=== PATIENT | female | born 1950 | race Two or more races ===

== ENCOUNTER 2023-11-04 16:18 | Emergency (ER) | payer MEDICARE, SELFPAY ==
--- NOTE | ~2023-11-04 | CT_ITS ---
EXAMINATION: CT ANGIOGRAM OF THE CHEST WITH AND WITHOUT CONTRAST (CT PULMONARY ANGIOGRAM FOR PE) CLINICAL INFORMATION: Pleuritic chest pain. Dizziness. Near-syncope. COMPARISON: Chest radiograph from 11/04/2023. TECHNIQUE: Prior to contrast administration, noncontrast localization images were obtained. Subsequently, multidetector volumetric imaging was performed from the thoracic inlet to below the diaphragms following the administration of 65 mL Omnipaque 350 intravenous contrast. No contrast reaction reported. Sagittal, coronal, and MIP oblique sagittal reformatted images were obtained on the CT workstation, uploaded to PACS, and reviewed. This CT examination was performed using dose optimization techniques as appropriate, variously including the following: *Automated exposure control. *Adjustment of mA and/or kV according to patient size (this includes techniques or standardized protocols for targeted exams where dose is matched to indication/reason for exam; i.e. extremities or head). *Use of iterative reconstruction technique. DLP: 413 mGy-cm FINDINGS: QUALITY OF STUDY/CONTRAST BOLUS: Satisfactory bolus. Respiratory motion limits evaluation of the lung bases. PULMONARY ARTERIES: No central pulmonary emboli. The segmental/subsegmental pulmonary arteries in the lung bases are not well evaluated on this exam. THORACIC AORTA: The thoracic aorta is of normal contour and caliber with mild calcific atherosclerotic disease. No evidence of thoracic aortic aneurysm or dissection. LUNG: Mild mosaic attenuation pattern of the lungs. Otherwise, no focal consolidation, nodules, or masses. Small bilateral pleural effusions. No pneumothorax. MEDIASTINUM: Normal heart size. No pericardial effusion. No hilar or mediastinal lymphadenopathy. No evidence of septal bowing or right heart strain. Coronary artery calcifications: Present - mild. CHEST WALL/AXILLA: No axillary or internal mammary lymphadenopathy. OSSEOUS STRUCTURES: Compression deformity of the T12 vertebral body with 50% loss of body height. No additional acute or suspicious osseous abnormality. UPPER ABDOMEN: Prior cholecystectomy. No demonstrated significant abnormalities of the visualized upper abdomen. No reflux of contrast into the hepatic veins to suggest elevated right heart pressures. CT/CT angio chest PE protocol IMPRESSION: 1. No central pulmonary emboli. The segmental/subsegmental pulmonary arteries in the lung bases are not well evaluated on this exam secondary to respiratory motion. 2. Small bilateral pleural effusions. 3. Compression deformity of the T12 vertebral body with 50% loss of body height. VTE: negative. Electronically signed by: yTler Pena DO 11/04/2023 11:12 PM EDT RP
--- NOTE | ~2023-11-04 | XR_ITS ---
EXAMINATION: XR LUMBOSACRAL SPINE CLINICAL INFORMATION: Fall COMPARISON: None available. TECHNIQUE: Three views of the lumbosacral spine. FINDINGS/ XR/XR lumbar spine 2-3V IMPRESSION: 5 nonrib-bearing lumbar vertebral bodies. Grade 1 anterolisthesis of L5 on S1, likely secondary to pars interarticularis defects. Central wedging of the T12 vertebral body. Moderate L4-5 and L5 S1 neural foraminal stenosis. Soft tissue structures within normal limits. Electronically signed by: Jasson Gordon DO 11/04/2023 10:51 PM EDT
--- NOTE | ~2023-11-04 | CT_ITS ---
EXAMINATION: CT HEAD WITHOUT CONTRAST CLINICAL INFORMATION: Dizziness, fall, unsteady COMPARISON: None available. TECHNIQUE: Contiguous axial imaging was performed from the skull base to vertex without intravenous administration of contrast. This CT examination was performed using dose optimization techniques as appropriate, variously including the following: *Automated exposure control *Adjustment of mA and/or kV according to patient size (this includes techniques or standardized protocols for targeted exams where dose is matched to indication/reason for exam; i.e. extremities or head) *Use of iterative reconstruction technique DLP: 563 mGy-cm FINDINGS: There is no evidence of acute intracranial hemorrhage or edematous territorial infarction. No abnormal mass effect or midline shift is seen. [place] to white matter differentiation is well preserved. No abnormal extra-axial fluid collections are identified. Patchy periventricular and deep white matter hypodensity suggestive of chronic microangiopathy. No acute calvarial fracture.. Paranasal sinuses and mastoid air cells are well-aerated. CT/CT head/brain wo IV con IMPRESSION: No CT evidence of acute intracranial hemorrhage or edematous territorial infarction. Electronically signed by: Juan Tripathi MD 11/04/2023 05:53 PM EDT
--- NOTE | ~2023-11-04 | CT_ITS ---
CT CERVICAL SPINE WITHOUT CONTRAST HISTORY: neck pain TECHNIQUE: CT images of the cervical spine were acquired without intravenous contrast. This CT examination was performed using dose optimization techniques as appropriate, variously including the following: *Automated exposure control *Adjustment of mA and/or kV according to patient size (this includes techniques or standardized protocols for targeted exams where dose is matched to indication/reason for exam; i.e. extremities or head) *Use of iterative reconstruction technique DLP: 415 mGy-cm COMPARISON: None available. FINDINGS: No prevertebral soft tissue swelling. The craniocervical junction is intact with hypertrophic degenerative changes across the anterior atlantodental interval. Vertebral body heights are maintained. No acute fracture or traumatic malalignment. Reversal of the cervical lordosis Please note that CT is insensitive for evaluating spinal canal patency without intrathecal contrast. Multilevel cervical spondylosis without high-grade spinal canal narrowing. No significant abnormalities of the paraspinal tissues patchy mild calcific atherosclerotic disease of the imaged aortic arch, great vessels, and carotid bifurcations. Visualized lung apices are clear. The visualized intracranial structures are normal. CT/CT cervical spine wo IV con IMPRESSION: No acute osseous abnormality or traumatic malalignment in the cervical spine. Electronically signed by: Shelli Galarza MD 11/04/2023 10:45 PM EDT
--- NOTE | ~2023-11-04 | XR_ITS ---
EXAMINATION: XR CHEST CLINICAL INFORMATION: Dizziness COMPARISON: None available. TECHNIQUE: Frontal view of the chest was obtained. FINDINGS: No significant abnormality is noted involving the heart, lungs, mediastinum, bony thorax or soft tissues. XR/XR chest 1V IMPRESSION: Unremarkable examination. Electronically signed by: Mulugeta Flores MD 11/04/2023 07:12 PM EDT RP
--- NOTE | 2023-11-04 16:27 | ED_ITS ---
HPI - Neck Pain/Injury General Chief Complaint: Fall Stated Complaint: fall neck and back pain Time Seen by Provider: 11/04/23 19:57 Source: patient and family Mode of arrival: ambulatory Limitations: no limitations History of Present Illness ED Provider: MIRTHA HERNANDEZ Narrative: 73 yo female with PMH of HTN, DM, just came from [place] a [place] ago here with c/o dizziness x 1 week and intermittent chest pain central for a few days. Last night was so dizzy she did fall - no headstrike or LOC but has neck pain and low back pain. She is not on thinners. She has no dizziness today. She is eating and drinking normally. Denies fevers, cough, dyspnea. She has been urinating more. She does not report GIB. She has no abdominal pain. Most of her pain is in her posterior neck after she fell. complaint: neck pain Onset (ago): day(s) (1) Place: home Radiation: right lateral and left lateral Severity: moderate Quality: dull and aching Duration: intermittent Relieving factors: immobilization Exacerbating factors: movement of neck Context: fall Associated symptoms: other (chest pain) Treatments prior to arrival: none Related Data Previous Rx's ?Medication ?Instructions ?Recorded amlodipine 5 mg tablet 5 mg PO DAILY #30 tabs 11/04/23 cefuroxime axetil 250 mg tablet 250 mg PO BID 7 days #14 tabs 11/04/23 lidocaine 5 % topical patch 1 patch topical DAILY #30 ea 11/04/23 Allergies Allergy/AdvReac Type Severity Reaction Status Date / Time No Known Allergies Allergy Verified 11/04/23 16:36 Review of Systems 2 Review of Systems: Constitutional : No Weight loss, No Fever, No Chills, ENT/Mouth : No Hearing loss, No Ear Pain, No Nasal Congestion, No Sinus Pain, No Hoarseness, No sore throat, No Rhinorrhea, No Swallowing Difficulty Cardiovascular : pos Chest Pain, No SOB Respiratory : No Cough, No Dyspnea Gastrointestinal : No Nausea, No Vomiting, No Diarrhea, No abdominal Pain, No Hematochezia, No Melena Genitourinary : No Dysuria, pos Urinary Frequency, No Hematuria, No Urinary Incontinence, Musculoskeletal : positive back pain Skin : No Skin Lesions, No rash Neuro : No Weakness, No Numbness, No Paresthesias, no loss of bowel or bladder incontinence, no saddle anesthesia All other systems reviewed and are negative [facility] Past Medical History Attestation statement: The following information was validated with the patient. Source: old records reviewed Medical History Diabetes HTN (hypertension) Social History Social History (Updated 11/04/23 @ 20:28 by Padmaja Izquierdo DO) Patient Tobacco Use Status: Never used Tobacco Smoked in Last 30 Days: No Use of substances other than those prescribed or required for medical reasons: No Advance Directives: No Advance Directives Information Provided: No Do you have a plan to hurt others: No Plan Physical Exam 2 Vital Signs: Vital Signs: Last Vital Signs Temp 98.3 F 11/05/23 06:25 Pulse 52 11/05/23 06:25 Resp 16 11/05/23 06:25 BP 175/79 H 11/05/23 06:25 Pulse Ox 98 11/05/23 06:25 O2 Del Method Room Air 11/05/23 06:25 BMI result Body Mass Index 34.3 Appearance: Alert. Oriented X3. No acute distress. Eyes: Pupils equal, round and reactive to light. ENT: Pharynx normal. Neck: Normal inspection. Mild posterior C6-C7 ttp no step offs. CVS: Normal heart rate and rhythm. Pulses normal. Respiratory: No respiratory distress. Breath sounds normal. Abdomen: Soft and nontender. Back: atraumatic but reports lower lumbar ttp Skin: Skin warm and dry. Normal skin color. Normal skin turgor. Extremities: No lower extremity edema. No calf ttp Neuro: Oriented X 3. No motor deficit. No sensory deficit. Standing up to commode no ataxia Course Course Course Narrative: This is a Rapid Medical Exam performed in triage by Sheri Mendez PA-C. Full HPI, ROS and PE to be performed by primary ED provider. 73 yo F presenting to the ED c/o neck and lower back pain after fall that occurred yesterday due to unsteady gait and dizziness. Has been feeling dizzy since. Patient reports that she has been dizzy for the past week. Denies head trauma with fall, loss of consciousness, syncope. Endorses chronic incontinence. Takes Aspirin. Denies headache, abdominal pain, CP/SOB PE: BP 185/80, AxO x2, no midline spinous tenderness throughout. Ambulating with steady gait. 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 Plan is for patient to be discharged home with family this am. BP elevated, vitals otherwise stable. Home meds ordered. Medications Administered Discontinued Medications Generic Name Dose Route Start Last Admin Trade Name Danielle PRN Reason Stop Dose Admin Acetaminophen 650 mg 11/04/23 22:30 11/04/23 22:45 Acetaminophen 325 Mg Tablet PO 11/04/23 22:31 650 mg ONCE ONE Administration Amlodipine Besylate 5 mg 11/04/23 23:23 11/04/23 23:55 Amlodipine Besylate 5 Mg Tablet PO 11/04/23 23:24 5 mg ONCE ONE Administration Protocol Ceftriaxone Sodium 1 gm/ 50 mls @ 100 mls/hr 11/04/23 20:08 11/04/23 23:31 Sodium Chloride IV 11/04/23 20:37 Infused ONCE ONE Infusion Sodium Chloride 1,000 mls @ 999 mls/hr 11/04/23 20:08 11/04/23 23:30 Ns IV 11/04/23 21:08 Infused .Q1H1M ONE Infusion Iohexol 100 ml 11/04/23 21:47 11/04/23 21:47 Iohexol 350 Mg/Ml 100 Ml Infus..Btl IV 11/04/23 21:48 65 ml ONCE ONE Administration Medical Decision Making Medical Decision Making MDM Narrative: 73 yo female with PMH of HTN, DM, takes baby aspirin recently came back from [place] 1 week ago now with dizziness x 1 week chest pain for a few days central and fell yesterday. She has no focal deficits, she is not dizzy now so posterior stroke unlikely. She denies n/v/d GIB symptoms. She has central pain in her chest - at this time labs, EKG, CTA: PE, CT head and cspine for trauma ordered, lumbar spine. She has mild dysuria. She is not confused. Differential Diagnosis Differential Diagnoses: The differential diagnosis associated with the presentation includes head trauma, AMPARO, PE, anemia, dehydration Admission/Observation Consideration of admission/observation: Escalation of care including admission/observation considered physician observation started at 1125pm pending re-eval in AM - will start on BP medications, dizziness resolved refuses rehab wants to go back to [place] Lab Data MDM Lab Attestation statement: I reviewed the patient's lab results. 11/04/23 16:46 11/04/23 16:45 Labs: Lab Results 11/04/23 11/04/23 11/04/23 Range/Units 16:45 16:46 17:05 WBC 8.2 (4.8-10.8) X10*3/uL RBC 4.68 (4.20-5.50) X10*6/uL Hgb 14.3 (12.0-16.0) g/dl Hct 42.2 (37.0-47.0) % MCV 90.2 (80.0-98.0) fL MCH 30.6 (27.0-33.0) pg MCHC 33.9 (31.0-35.0) g/dl RDW 14.2 (11.0-16.0) % Plt Count 228 (160-400) X10*3/uL MPV 10.6 (9.4-12.3) fL Immature Gran % (Auto) 0.2 (0.0-0.4) % Neut % (Auto) 66.3 (45-73) % Lymph % (Auto) 20.8 (20-40) % [place] % (Auto) 9.4 (2-11) % Eos % (Auto) 2.6 (0-4) % Baso % (Auto) 0.7 (0-2) % Lymph # (Auto) 1.7 (1.2-4.9) X10*3/uL [place] # (Auto) 0.8 (0.1-1.2) X10*3/uL Eos # (Auto) 0.2 (0.0-0.4) X10*3/uL Baso # (Auto) 0.1 (0.0-0.2) X10*3/uL Abs Immat Gran (auto) 0.02 (0.00-0.03) X10*3/uL Absolute Neuts (auto) 5.4 (2.0-8.3) x10*3/uL Absolute Nucleated RBC 0.000 (0.0-0.012) X10*3/uL Nucleated RBC % (auto) 0.0 (0.0-0.2) /100WBC PT 11.4 (10.9-12.4) SEC INR 1.0 (0.9-1.1) Sodium 142 (135-145) mmol/L Potassium 4.2 (3.3-5.1) mmol/L Chloride 106 (96-108) mmol/L Carbon Dioxide 27 (22-29) mmol/L Anion Gap 13 (12-20) BUN 12 (9-16) mg/dL Creatinine 0.83 (0.5-1.4) mg/dL Estim Creat Clear Calc 61.9 Estimated GFR > 60 Random Glucose 98 (60-115) mg/dL Calcium 9.3 (8.4-10.2) mg/dL Magnesium 2.0 (1.6-2.6) mg/dL Total Bilirubin 1.2 H (0.0-1.0) mg/dL Direct Bilirubin 0.3 (0.0-0.5) mg/dL AST 14 (5-31) U/L ALT 7 (0-31) U/L Alkaline Phosphatase 77 (39-117) U/L Troponin I High Sens 5.5 (<3.5-17.0) ng/L Total Protein 7.1 (6.5-8.0) g/dL Albumin 4.0 (3.5-5.0) g/dL Urine Color Yellow Urine Appearance Cloudy Urine pH 6.0 (5.0-9.0) Ur Specific [place] 1.025 (1.005-1.025) Urine Protein Trace (Neg-Trace) mg/dL Urine Glucose (UA) Negative (Negative) mg/dL Urine Ketones Negative (Negative) mg/dL Urine Blood Trace H (Negative) Urine Nitrite Positive H (Negative) Ur Leukocyte Esterase Large (3+) H (Negative) Urine RBC 3-5 H (0-2) /HPF Urine WBC >50 H (0-5) /HPF Ur Squamous Epith Cells 6-10 (0-2) /HPF Urine Bacteria 3+ (None Seen) Hyaline Casts 0-2 (0-2) /LPF Influenza Type A (PCR) NEGATIVE (Negative) Influenza Type B (PCR) NEGATIVE (Negative) RSV RNA Qual (PCR) NEGATIVE (Negative) SARS-CoV-2 RNA (RT-PCR) NEGATIVE (Negative) Independent Interpretation I performed an independent interpretation of an: EKG, Plain X-Ray and CT Scan (no ICH, no PE, t12 compression fracture up and walking) Interpretation: Rate: 55 Rhythm: sinus bradycardia [place]: left Normal P waves. Normal REAL. Normal QRS complex. ST T wave : normal no YOHAN qTC: 417 prior studies: no acute ischemia The study has been interpreted contemporaneously by me. . Radiology Impression Discussion of test interpretation with radiology: I have reviewed the radiologist's reading. Independent Historian Clinical information obtained from an independent historian. History obtained from or confirmed by: Friend Prescription Management I considered prescription management with: Pain Medication, Antibiotic and Other Discharge Plan Discharge Clinical Impression: Acute UTI, Dizziness HTN (hypertension) Qualifiers: Hypertension type: unspecified Qualified Code(s): I10 - Essential (primary) hypertension T12 compression fracture Qualifiers: Encounter type: initial encounter Qualified Code(s): S22.080A - Wedge compression fracture of T11-T12 vertebra, initial encounter for closed fracture Patient Disposition: Still a Patient Instructions: Urinary Tract Infection in Women (ED), Hypertension (ED), Dizziness (ED) Additional Instructions: take new blood pressure medications finish all antibiotics t12 compression fracture return for any worsening symptoms, numbness, weakness, falls, confusion or any other concerns. Prescriptions: New cefuroxime axetil 250 mg tablet 250 mg PO BID 7 Days Qty: 14 0RF amlodipine 5 mg tablet 5 mg PO DAILY Qty: 30 0RF lidocaine 5 % adhesive patch,medicated 1 patch topical DAILY Qty: 30 0RF Rx Instructions: leave on most painful area for up to 12 hrs Print Language: Khmer
[2023-11-04 16:29] VITALS: BP 185/80; PULSE 61; RESP 18; TEMP 36.6; O2SAT 98; BMI 34.3
--- NOTE | 2023-11-04 16:40 | ECG_ITS ---
Test Reason : SYNCOPE Blood Pressure : / mmHG Vent. Rate : 055 BPM Atrial Rate : 055 BPM P-R Int : 164 ms QRS Dur : 104 ms QT Int : 436 ms P-R-T Axes : 021 -25 030 degrees QTc Int : 417 ms Sinus bradycardia Moderate voltage criteria for LVH, may be normal variant ( R in aVL , Tab product ) Borderline ECG No previous ECGs available Referred By: Sheri Mendez Electronically Signed By:MATY ROSA
[2023-11-04 16:57] LABS: MANUAL DIFF FLAG NO
[2023-11-04 16:58] LABS: Basophils Absolute Auto 0.1 X10*3/uL (0.0-0.2); Basophils Percent Auto 0.7 % (0-2); Eosinophils Absolute Auto 0.2 X10*3/uL (0.0-0.4); Eosinophils Percent Auto 2.6 % (0-4); Hematocrit 42.2 % (37.0-47.0); Hemoglobin 14.3 g/dl (12.0-16.0); Imm Gran Abs Auto 0.02 X10*3/uL (0.00-0.03); Imm Gran Pct Auto 0.2 % (0.0-0.4); Lymphocytes Absolute Auto 1.7 X10*3/uL (1.2-4.9); Lymphocytes Percent Auto 20.8 % (20-40); Mean Corpuscular HGB Conc 33.9 g/dl (31.0-35.0); Mean Corpuscular Hemoglobin 30.6 pg (27.0-33.0); Mean Corpuscular Volume 90.2 fL (80.0-98.0); Mean Platelet Volume 10.6 fL (9.4-12.3); Monocytes Absolute Auto 0.8 X10*3/uL (0.1-1.2); Monocytes Percent Auto 9.4 % (2-11); Neutrophils Absolute Auto 5.4 x10*3/uL (2.0-8.3); Neutrophils Percent Auto 66.3 % (45-73); Platelet Count 228 X10*3/uL (160-400); Red Blood Count 4.68 X10*6/uL (4.20-5.50); Red Cell Distribution Width 14.2 % (11.0-16.0); White Blood Count 8.2 X10*3/uL (4.8-10.8)
[2023-11-04 17:04] LABS: Prothrombin Time 11.4 SEC (10.9-12.4)
[2023-11-04 17:17] LABS: Appearance Urine Cloudy; Color Urine Yellow; Glucose Urine UA Negative (Negative); Leukocyte Esterase Urine Large (3+) (Negative); Nitrite Urine Positive (Negative); Specific Gravity - Urine 1.025 (1.005-1.025); UMIC TRIGGER UACC YES; Urine Blood Trace (Negative); Urine Ketones Negative (Negative); Urine Protein Trace mg/dL (Neg-Trace)
[2023-11-04 17:19] LABS: Alanine Aminotransferase 7 U/L (0-31); Alkaline Phosphatase 77 U/L (39-117); Anion Gap 13 (12-20); Aspartate Amino Transferase 14 U/L (5-31); Bilirubin Direct 0.3 mg/dL (0.0-0.5); Bilirubin Total 1.2 mg/dL (0.0-1.0); Blood Urea Nitrogen 12 mg/dL (9-16); Calcium 9.3 mg/dL (8.4-10.2); Carbon Dioxide 27 mmol/L (22-29); Chloride 106 mmol/L (96-108); Creatinine Clr Calc Pharmacy 61.9; Estimated Glomerular Filt Rate > 60; Glucose Random 98 mg/dL (60-115); Potassium 4.2 mmol/L (3.3-5.1); Sodium 142 mmol/L (135-145); Total Protein 7.1 g/dL (6.5-8.0)
[2023-11-04 17:23] LABS: Bacteria Urine 3+ (None Seen); Hyaline Casts Urine 0-2 /LPF (0-2); UACC Culture Trigger YES; WBC Urine >50 /HPF (0-5)
[2023-11-04 17:26] LABS: Troponin-I High Sensitivity 5.5 ng/L (<3.5-17.0)
[2023-11-04 17:36] LABS: Influenza A PCR NEGATIVE (Negative); Influenza B PCR NEGATIVE (Negative); Resp Syncy Virus RNA Qual PCR NEGATIVE (Negative); SARS COV2 PCR INHOUSE NEGATIVE (Negative)
[2023-11-04 19:32] VITALS: BP 192/88; PULSE 57
[2023-11-04 19:33] VITALS: BP 192/85; PULSE 59
[2023-11-04 19:36] VITALS: BP 174/88; PULSE 60
--- NOTE | 2023-11-04 19:45 | PC.NURSE ---
pt from lobby, assume care of pt at this time
[2023-11-04] MEDS: iohexoL 350 MG/ML 100 ML INFUS..BTL IV (21:47)
[2023-11-04] MEDS: cefTRIAXone sodium 1 GM in 0.9 % Sodium Chloride 50 ML IV (21:57)
[2023-11-04] MEDS: 0.9 % Sodium Chloride 1,000 ML 999 ML IV (21:57)
[2023-11-04 21:59] VITALS: BP 201/84; PULSE 57; RESP 20; TEMP 37.4; O2SAT 99
[2023-11-04] MEDS: Acetaminophen 325 MG TABLET 650 MG PO (22:45)
[2023-11-04] MEDS: amLODIPine Besylate 5 MG TABLET PO (23:55)
[2023-11-05 00:11] VITALS: BP 149/73; PULSE 64; RESP 16; TEMP 36.6; O2SAT 97
[2023-11-05 06:25] VITALS: BP 175/79; PULSE 52; RESP 16; TEMP 36.8; O2SAT 98
[2023-11-05 07:27] VITALS: BP 191/96
[2023-11-05] MEDS: amLODIPine Besylate 5 MG TABLET PO (07:27)
[2023-11-05] MEDS: cefuroxime axetiL 250 MG TABLET PO (07:27)
[2023-11-05 07:30] VITALS: BP 191/96; PULSE 62; RESP 16; O2SAT 100
--- NOTE | 2023-11-05 08:51 | PC.NURSE ---
Alert/oriented, mexican speaking. States usual pain 5/10 at this time. BP meds given as ordered and abx for UTI. 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 breakfast ordered however hasnt yet arrived. Up to commode to void and no assist needed. Awaiting family ride
[2023-11-05 09:54] VITALS: BP 139/78; PULSE 68; RESP 16; TEMP 36.6; O2SAT 96
== END 2023-11-05 09:55 | disposition still patient (30) ==
PROVIDERS: Physician Assistant; Emergency Provider Emergency Medicine
DX: N39.0 Urinary tract infection, site not specified (principal); R42 Dizziness and giddiness; I10 Essential (primary) hypertension; R00.1 Bradycardia, unspecified; S22.080A Wedge compression fracture of T11-T12 vertebra, initial encounter for closed fracture; W18.30XA Fall on same level, unspecified, initial encounter; Z03.818 Encounter for observation for suspected exposure to other biological agents ruled out; E11.9 Type 2 diabetes mellitus without complications; Y93.89 Activity, other specified; Y92.019 Unspecified place in single-family (private) house as the place of occurrence of the external cause; Y99.9 Unspecified external cause status
CPT/HCPCS: 0241U; 70450; 71045; 71275; 72100; 72125; 80048; 80076; 81001; 83735; 84484; 85025; 85610; 87086; 93005; 96361; 96374; 99284; 99285; J0696; Q9967